=== PATIENT | female | born 1985 | race Caucasian/White ===

== ENCOUNTER 2020-09-21 16:30 | Outpatient (REF) | payer MEDICAID, SELFPAY ==
[2020-09-21 21:24] LABS: Mono Screening Negative (Negative)
== END 2020-09-21 16:31 | disposition home or self-care (01) ==
LOC: NCHCN 16:30
PROVIDERS: Visit Provider Physician Assistant Medical
DX: R53.83 Other fatigue (principal)
CPT/HCPCS: 86308